=== PATIENT | female | born 1985 | race Caucasian/White ===

== ENCOUNTER 2019-09-17 14:41 | Emergency (ER) | payer BC ==
[~2019-09-17] VITALS: Ht 175.3 cm; Wt 161.9 kg
[~2019-09-17 14:41] MED LIST: EFFEXOR XR150 MG PO; FAMOTIDINE40 MG PO; HYDROXYZINE HCL50 MG PO; IRON 100-VITAM1 EACH PO; LAMICTAL100 MG PO; NORCO 10-325 T1 EACH PO; SYNTHROID150 MCG PO; VITAMIN D350 MC2 PO
--- OUTSIDE RECORDS SUMMARY | 2019-09-17 14:44 | XMS ---
PreManage Notification: ALESSANDRO OTOOLE Security Men'S Swim Coach Events No recent Security Events currently on file CRITERIA MET - - 2 Visits in 30 Days CARE PROVIDERS DANETTE ACUNA Physician Bundle Clerk Current PHONE: Unknown Aquiles has no Care Guidelines for this patient. E.Roopa VISIT COUNT (12 MO.) 2 [facility] TOTAL 2 NOTE: Visits indicate total known visits. 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
[2019-09-17] MEDS ORDERED: DICLOFENAC SOD100 G1 TOP (15:11)
[2019-09-17] MEDS ORDERED: TRAZODONE HCL50 MG PO (15:11)
[2019-09-17] MEDS ORDERED: OMEPRAZOLE20 MG PO (15:12)
[2019-09-17] MEDS ORDERED: CLONAZEPAM0.5 MG PO (15:12)
== END 2019-09-17 15:35 | disposition left against medical advice (07) ==
LOC: ED 14:41
DX: Z53.21 Procedure and treatment not carried out due to patient leaving prior to being seen by health care provider (principal)

== ENCOUNTER 2019-09-18 04:09 | Emergency (ER) | payer BC ==
[~2019-09-18] VITALS: Ht 175.3 cm; Wt 161.9 kg
--- OUTSIDE RECORDS SUMMARY | ~2019-09-18 | XMS | Clinical Summary ---
Demographics + + + | Address | [address] | | | [place] [address] | + + + | Home Phone | | + + + | Preferred Language | Unknown | + + + | Marital Status | Single | + + + | Protestant Affiliation | Unknown | + + + | Race | Unknown | + + + | Ethnic Group | Unknown | + + + Author + + + | Author | [facility] (Historical as of | | | 01-12-19) | + + + | Organization | [facility] (Historical as of | | | 01-12-19) | + + + | Address | Unknown | + + + | Phone | Unavailable | + + + Support + + +---------+ + | Name | Relationship | Address | Phone | + + +---------+ + | Catrachito Mir | ECON | Unknown | | + + +---------+ + Care Team Providers + +------+ + | Care Meal Cooker Name | Role | Phone | + +------+ + | Patty Faith | PP | Unavailable | + +------+ + Allergies + + + + + + | Active Allergy | Reactions | Severity | Noted | Comments | | | | | Date | | + + + + + + | Levothyroxine | Anaphylaxis, | High | 02/03/20 | | | | Itching, Swelling | | 17 | | + + + + + + | Levothyroxine Sodium | Anaphylaxis | High | | | + + + + + + Current Medications + + +--------+---------+------+------+-------+ | Prescription | Sig. | Disp. | Refills | Star | End | Statu | | | | | | t | Date | s | | | | | | Date | | | + + +--------+---------+------+------+-------+ | KLONOPIN 0.5 MG | Take 1 mg by mouth | | 0 | 08/0 | | Activ | | tablet | as needed. | | | 7/20 | | e | | | | | | 17 | | | + + +--------+---------+------+------+-------+ | buPROPion | Take 150 mg by mouth | | | | | Activ | | (WELLBUTRIN XL) 150 | every morning. | | | | | e | | MG 24 hr tablet | | | | | | | + + +--------+---------+------+------+-------+ | dexamethasone | Take 1 tablet by | 1 | 0 | 11/0 | | Activ | | (DECADRON) 1 MG | mouth once as needed | tablet | | 11/15 | | e | | tabletIndications: | for up to 1 dose. | | | 17 | | | | PCOS (polycystic | To be taken at 11 | | | | | | | ovarian syndrome), | pm. | | | | | | | Weight disorder, | | | | | | | | Other acne, | | | | | | | | Hypercortisolism | | | | | | | | (HCC), Irregular | | | | | | | | menses | | | | | | | + + +--------+---------+------+------+-------+ | vitamin D2, | Take 50,000 Units by | | | / | | Activ | | ergocalciferol, | mouth once a week. | | | 02/15 | | e | | [id number] units capsule | | | | 18 | | | + + +--------+---------+------+------+-------+ | FLUARIX | | | | 09/2 | | Activ | | QUADRIVALENT 0.5 ML | | | | 06/17 | | e | | injection | | | | 18 | | | + + +--------+---------+------+------+-------+ | clonazePAM | | | | 09/0 | | Activ | | (KLONOPIN) 1 MG | | | | 5/20 | | e | | tablet | | | | 18 | | | + + +--------+---------+------+------+-------+ | | clindamycin 1.2 % (1 | | | | | Activ | | Clindamycin-Benzoyl | % base)-benzoyl | | | | | e | | Per, Refr, gel | peroxide 5 % topical | | | | | | | | gel | | | | | | + + +--------+---------+------+------+-------+ | SYNTHROID 175 MCG | take 1 tablet by | 30 | 11 | 10/0 | | Activ | | tablet | mouth every morning | tablet | | 5/20 | | e | | | BEFORE BREAKFAST | | | 18 | | | + + +--------+---------+------+------+-------+ Active Problems + + + | Problem | Noted Date | + + + | Other specified hypothyroidism | 08/16/2017 | + + + Family History + + +------+ + | Medical History | Relation | Name | Comments | + + +------+ + | Seizures | Brother | | | + + +------+ + | Alcoholism | Father | | | + + +------+ + | Heart disease | Maternal | | | | | Grandmoth | | | | | er | | | + + +------+ + | Arthritis | Mother | | | + + +------+ + + +------+ + + | Relation | Name | Status | Comments | + +------+ + + | Brother | | Alive | | + +------+ + + | Father | | | | + +------+ + + | Maternal Grandmother | | | | + +------+ + + | Mother | | Alive | | + +------+ + + Social History + +-------+ +--------+ + | Tobacco Use | Types | Packs/Day | Years | Date | | | | | Used | | + +-------+ +--------+ + | Former Smoker | | | 13 | Quit: 08/06/2017 | + +-------+ +--------+ + + +---+---+---+ | Smokeless Tobacco: | | | | | Never Used | | | | + +---+---+---+ + + +---------+ + | Alcohol Use | Drinks/We | oz/Week | Comments | | | ek | | | + + +---------+ + | No | | | | + + +---------+ + + + + | Sex Assigned at | Date Recorded | | | | + + + | Not on file | | + + + Last Filed Vital Signs + + + + | Vital Sign | Reading | Time Taken | + + + + | Blood Pressure | 118/62 | 02/20/2018 8:36 AM PDT | + + + + | Pulse | 50 | 02/20/2018 8:36 AM PDT | + + + + | Temperature | - | - | + + + + | Respiratory Rate | 16 | 02/20/2018 8:36 AM PDT | + + + + | Oxygen Saturation | 98% | 02/20/2018 8:36 AM PDT | + + + + | Inhaled Oxygen | - | - | | Concentration | | | + + + + | Weight | 140.3 kg (309 lb 4.8 | 02/20/2018 8:36 AM PDT | | | oz) | | + + + + | Height | 175.3 cm (5' 9") | 02/20/2018 8:36 AM PDT | + + + + | Body Mass Index | 45.68 | 02/20/2018 8:36 AM PDT | + + + + Plan of Treatment + + + + + | Health Maintenance | Due Date | Last Done | Comments | + + + + + | Vaccine: | | | | | Dtap/Tdap/Td (1 - | 5 | | | | Tdap) | | | | + + + + + | Cervical Cancer | | | | | Screening (Pap) | 6 | | | + + + + + | Vaccine: Influenza | | | | | (Season Ended) | 0 | | | + + + + + Results Not on filefrom Last 3 Months Insurance +---------+--------+ +------+-------+ + | Payer | Benefi | Subscriber | Type | Phone | Address | | | t Plan | ID | | | | | | / | | | | | | | Group | | | | | +---------+--------+ +------+-------+ + | PREMERA | PREMER | [id number] | | | [address] [address] | | | A BLUE | 2 | | | [place], [place] | | | CARD | | | | [phone] | +---------+--------+ +------+-------+ + + +--------+ +--------+ + + | Guarantor Name | Accoun | Relation to | Date | Phone | Billing Address | | | t Type | Patient | of | | | | | | | | | | + +--------+ +--------+ + + | ALESSANDRO TOLEDO | Person | Self [birth year] | Home: | [address] | | | al/Fam | | 1984 | [phone] | [place] | | | sav | | | [phone] | + +--------+ +--------+ + +
--- OUTSIDE RECORDS SUMMARY | ~2019-09-18 | XMS | Clinical Summary ---
Demographics + + + | Address | [address] | | | [place] [address] | + + + | Home Phone | | + + + | Preferred Language | Unknown | + + + | Marital Status | Single | + + + | Oriental Orthodox Affiliation | Unknown | + + + | Race | Unknown | + + + | Ethnic Group | Unknown | + + + Author + + + | Author | [facility] (Historical as of | | | 01-12-19) | + + + | Organization | [facility] (Historical as of | | | 01-12-19) [...] Team Providers + +------+ + | Care Knocker Off Name | Role | Phone | + [...] | 02/15 | | e | | [id number] units capsule | | | | 18 [...] +------+-------+ + | PREMERA | PREMER | [id number] | | | [address] [address] | | | A BLUE | 2 | | | [place], [place] | | | CARD | | | | [phone] | +---------+--------+ +------+-------+ + + +--------+ +--------+ + + | Guarantor Name | Accoun | Relation to | Date | Phone | Billing Address | | | t Type | Patient | of | | | | | | | | | | + +--------+ +--------+ + + | ALESSANDRO TOLEDO | Person | Self | [birth year] | Home: | [address] | | | al/Fam | | 1984 | [phone] | [place] | | | sav | | | [phone] | + +--------+ +--------+ + +
[~2019-09-18 04:09] MED LIST changes: +CLONAZEPAM0.5 MG PO; +DICLOFENAC SOD100 G1 TOP; +OMEPRAZOLE20 MG PO; +TRAZODONE HCL50 MG PO
--- OUTSIDE RECORDS SUMMARY | 2019-09-18 04:12 | XMS ---
PreManage Notification: ALESSANDRO OTOOLE Security Toolroom Checker Events No recent Security Events currently on file CRITERIA MET - [facility] - 2 Visits in 30 Days CARE PROVIDERS DANETTE ACUNA Physician Split And Drum Room Supervisor Current PHONE: Unknown Aquiles has no Care Guidelines for this patient. E.Roopa VISIT COUNT (12 MO.) 3 [facility] TOTAL 3 NOTE: Visits indicate total known visits. ED/UCC VISIT TRACKING (12 MO.) 09/18/2019 04:09 [facility] [place] TYPE: Emergency COMPLAINT: - PTSD/UNABLE TO SLEEP 09/17/2019 14:42 [facility] [place] TYPE: Emergency COMPLAINT: - MEDICAL CLEARANCE 08/30/2019 07:42 [facility] [place] TYPE: Emergency COMPLAINT: - CHEST PAIN DIAGNOSES: - Personal history of nicotine dependence - Hypothyroidism, unspecified - Other half-way (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 - Chest pain, unspecified - Chondrocostal junction syndrome [Celina] INPATIENT VISIT TRACKING (12 MO.) No inpatient visits to display in this time frame [id number]
== END 2019-09-18 06:13 | disposition home or self-care (01) ==
LOC: ED 04:09
DX: G47.00 Insomnia, unspecified (principal); E03.9 Hypothyroidism, unspecified; F31.9 Bipolar disorder, unspecified; Z87.891 Personal history of nicotine dependence; Z79.899 Other long term (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
CPT/HCPCS: 99283

== ENCOUNTER 2019-09-21 04:35 | Emergency (ER) | payer BC ==
[~2019-09-21] VITALS: Ht 175.3 cm; Wt 161.9 kg
--- OUTSIDE RECORDS SUMMARY | ~2019-09-21 | XMS | Clinical Summary ---
Demographics + + + | Address | [address] | | | [place] [address] | + + + | Home Phone | | + + + | Preferred Language | Unknown | + + + | Marital Status | Single | + + + | Episcopal Affiliation | Unknown | + + + | Race | Unknown | + + + | Ethnic Group | Unknown | + + + Author + + + | Author | [facility] (Historical as of | | | 01-12-19) | + + + | Organization | [facility] (Historical as of | | | 01-12-19) [...] Team Providers + +------+ + | Care Lease Broker Name | Role | Phone | + [...] | 02/15 | | e | | [id number] units capsule | | | | 18 [...] +------+-------+ + | PREMERA | PREMER | [id number] | | | [address] [address] | | | A BLUE | 2 | | | [place], [place] | | | CARD | | | | [phone] | +---------+--------+ +------+-------+ + + +--------+ +--------+ + + | Guarantor Name | Accoun | Relation to | Date | Phone | Billing Address | | | t Type | Patient | of | | | | | | | | | | + +--------+ +--------+ + + | ALESSANDRO TOLEDO | Person | Self | [birth year] | Home: | [address] | | | al/Fam | | 1984 | [phone] | [place] | | | sav | | | [phone] | + +--------+ +--------+ + +
--- OUTSIDE RECORDS SUMMARY | ~2019-09-21 | XMS | Clinical Summary ---
Demographics + + + | Address | [address] | | | [place] [address] | + + + | Home Phone | | + + + | Preferred Language | Unknown | + + + | Marital Status | Single | + + + | Anabaptist Affiliation | Unknown | + + + | Race | Unknown | + + + | Ethnic Group | Unknown | + + + Author + + + | Author | [facility] (Historical as of | | | 01-12-19) | + + + | Organization | [facility] (Historical as of | | | 01-12-19) [...] Team Providers + +------+ + | Care Cutter First Name | Role | Phone | + [...] | 02/15 | | e | | 80105 units capsule | | | | 18 [...] +------+-------+ + | PREMERA | PREMER | [id number] | | | [address] [address] | | | A BLUE | 2 | | | [place], [place] | | | CARD | | | | [phone] | +---------+--------+ +------+-------+ + + +--------+ +--------+ + + | Guarantor Name | Accoun | Relation to | Date | Phone | Billing Address | | | t Type | Patient | of | | | | | | | | | | + +--------+ +--------+ + + | ALESSANDRO TOLEDO | Person | Self | [birth year] | Home: | [address] | | | al/Fam | | 1984 | [phone] | [place] | | | sav | | | [phone] | [phone] | + +--------+ +--------+ + +
--- OUTSIDE RECORDS SUMMARY | 2019-09-21 04:38 | XMS ---
PreManage Notification: ALESSANDRO OTOOLE Security Journeyman Pressman Events No recent Security Events currently on file CRITERIA MET - [facility] - 2 Visits in 30 Days CARE PROVIDERS DANETTE ACUNA Current PHONE: Unknown CHARLOTTE MORRISON 09/19/2019-Current PHONE: Unknown Name [facility] 09/18/2019-Current PHONE: [phone] Aquiles has no Care Guidelines for this patient. Care History Medical/Surgical 09/19/2019 [facility] - PATIENT PRIMARY CARE IS EBONI MORRISON. PATIENT DOES NOT SEE DR ACUNA ON A CONSISTENT BASES. - PATIENT HAS AN APT WITH THERAPIST 09/19/2019 IN THE EVENING -THERAPIST DARCY MORAN. 09/18/2019 [facility], \T\middot;\T\nbsp; PLEASE REFER PATIENT TO [facility] FOR NON EMERGENT MEDICAL NEEDS. \T\middot;\T\nbsp; [facility] CAN SEE PATIENTS SAME DAY FOR APTS IF PATIENT CALLS FIRST THING IN THE MORNING. E.D. VISIT COUNT (12 MO.) 4 [facility] TOTAL 4 NOTE: Visits indicate total known visits. 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 - Bipolar disorder, unspecified - Hypothyroidism, unspecified 09/17/2019 14:42 [facility] [place] TYPE: Emergency COMPLAINT: - MEDICAL CLEARANCE DIAGNOSES: - Procedure and treatment not carried out due to patient leavin 08/30/2019 07:42 [facility] [place] TYPE: Emergency COMPLAINT: - CHEST PAIN DIAGNOSES: - Personal history of nicotine dependence - Hypothyroidism, unspecified - Other penitentiary (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 - Chest pain, unspecified - Chondrocostal junction syndrome [Gianlucae] INPATIENT VISIT TRACKING (12 MO.) No inpatient visits to display in this time frame [id number]
[2019-09-21] MEDS ORDERED: DICLOFENAC SODI75 MG PO (05:18)
== END 2019-09-21 05:30 | disposition home or self-care (01) ==
LOC: ED 04:35
DX: M94.0 Chondrocostal junction syndrome [Tietze] (principal); F31.9 Bipolar disorder, unspecified; E03.9 Hypothyroidism, unspecified; Z87.891 Personal history of nicotine dependence; Z88.8 Allergy status to other drugs, medicaments and biological substances; Z79.899 Other long term (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
CPT/HCPCS: 99283

== ENCOUNTER 2020-04-22 10:39 | Emergency (ER) | payer OTHER ==
[~2020-04-22] VITALS: Ht 175.3 cm; Wt 159.5 kg
[~2020-04-22 10:39] MED LIST changes: +DICLOFENAC SODI75 MG PO
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
[2020-04-22] MEDS ORDERED: ONDANSETRON ODT4 MG PO (11:56)
[2020-04-22] MEDS ORDERED: SUDOGEST60 MG PO (11:56)
[2020-04-22] MEDS ORDERED: SYNTHROID175 MCG PO (13:52)
[2020-04-22] MEDS ORDERED: PREDNISONE20 MG PO (14:14)
== END 2020-04-22 14:44 | disposition home or self-care (01) ==
LOC: ED 10:39
DX: J45.901 Unspecified asthma with (acute) exacerbation (principal); E03.9 Hypothyroidism, unspecified; F31.9 Bipolar disorder, unspecified; E66.9 Obesity, unspecified; Z79.899 Other long term (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
CPT/HCPCS: 71045; 80053; 83735; 84484; 85025; 99285-25; J7512; U0003

== ENCOUNTER 2021-12-23 07:56 | Emergency (ER) | payer OTHER ==
[~2021-12-23] VITALS: Ht 175.3 cm; Wt 159.2 kg
[~2021-12-23 07:56] MED LIST changes: +ONDANSETRON ODT4 MG PO; +PREDNISONE20 MG PO; +SUDOGEST60 MG PO; +SYNTHROID175 MCG PO
--- OUTSIDE RECORDS SUMMARY | 2021-12-23 08:00 | XMS ---
PreManage Notification: ALESSANDRO OTOOLE Security Administrative Staff Supervisor Events No recent Security Events currently on file CRITERIA MET - [facility] CARE PROVIDERS DANETTE ACUNA Physician Current PHONE: Unknown Ayanna Sow Community Health Worker 03/02/2020-[facility] PHONE: [phone] CHARLOTTE MORRISON 09/19/2019-Current PHONE: Unknown NATHALIA LIU [facility] 09/18/2019-[facility] PHONE: [phone] Aquiles has no Care Guidelines for this patient. Care History Medical/Surgical 09/25/2019 [facility] PATIENT HAS A JUKEBOX COIN COLLECTOR FROM [facility] [phone] WHO IS WORKING WITH HER ON OUTPATIENT OPTIONS.\T\nbsp; WHEN PATIENT COMES IN, REMIND HER TO CALL THIS JUKEBOX COIN COLLECTOR. 09/19/2019 [facility] - PATIENT PRIMARY CARE IS [facility] CHARLOTTE MORRISON. PATIENT DOES NOT SEE DR ACUNA ON A CONSISTENT BASES. - PATIENT HAS AN APT WITH THERAPIST 09/19/2019 IN THE EVENING -THERAPIST DARCY MORAN. 09/18/2019 [facility] - PATIENT IS A [place] ELIGIBLE, \T\middot;\T\nbsp; PLEASE REFER PATIENT TO [facility] FOR NON EMERGENT MEDICAL NEEDS. \T\middot;\T\nbsp; [facility] CAN SEE PATIENTS SAME DAY FOR APTS IF PATIENT CALLS FIRST THING IN THE MORNING. E.D. VISIT COUNT (12 MO.) 1 [facility]. TOTAL 1 NOTE: Visits indicate total known visits. ED/UCC VISIT TRACKING (12 MO.) 12/23/2021 07:57 [facility] [place] TYPE: Emergency COMPLAINT: - SKIN PROBLEM INPATIENT VISIT TRACKING (12 MO.) No inpatient visits to display in this time frame [id number]
[2021-12-23] MEDS ORDERED: WIXELA 500-501 EACH INH (08:42)
== END 2021-12-23 11:39 | disposition home or self-care (01) ==
LOC: ED 07:56
DX: L50.9 Urticaria, unspecified (principal); F41.9 Anxiety disorder, unspecified; E03.9 Hypothyroidism, unspecified; E66.9 Obesity, unspecified; Z87.891 Personal history of nicotine dependence; Z88.8 Allergy status to other drugs, medicaments and biological substances; Z79.899 Other long term (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; Z20.822 Contact with and (suspected) exposure to COVID-19
CPT/HCPCS: 87502; 99283; A9270; C9803; J7512; Q0163; U0003